=== PATIENT | female | born 1975 | race Hispanic/Latino ===

== ENCOUNTER 2023-08-02 15:26 | Emergency (ER) | payer OTHER ==
[~2023-08-02] VITALS: Ht 162.6 cm; Wt 113.4 kg
[2023-08-02] MEDS ORDERED: ACET-2079 PO (18:17)
[2023-08-02] MEDS ORDERED: NAPR-1023 PO (18:17)
[2023-08-02] MEDS ORDERED: CYCL5TAB PO (18:17)
[2023-08-02] MEDS: HYDROCODONE/ACETAMINOPHEN 5/325 MG TAB PO ONE (18:32)
[2023-08-02] MEDS: KETOROLAC 30MG VIAL (30MG/ML) IM ONE (18:33)
[2023-08-02 18:47] VITALS: BP 152/86; PULSE 86; RESP 18; O2SAT 97
== END 2023-08-02 18:50 | disposition home or self-care (01) ==
LOC: EDH 15:26
DX: S83.8X2A Sprain of other specified parts of left knee, initial encounter (principal); I10 Essential (primary) hypertension; X58.XXXA Exposure to other specified factors, initial encounter; Y93.89 Activity, other specified; Y92.89 Other specified places as the place of occurrence of the external cause; Y99.8 Other external cause status
CPT/HCPCS: 99283; 29505; 73560 ×2; 96372; J1885